=== PATIENT | male | born 1950 | race Native Hawaiian/Other Pacific Islander ===

== ENCOUNTER 2020-03-26 16:38 | Emergency (ER) | payer OTHER ==
[~2020-03-26] VITALS: Ht 175.3 cm; Wt 49.0 kg
[2020-03-26 16:38] VITALS: BP 163/87; TEMP 98.9
[2020-03-26 17:25] LABS: PLATELET COUNT 276 K/uL (142-355)
[2020-03-26] MEDS ORDERED: EUTHYROX100 MCG PO (19:25)
[2020-03-26] MEDS ORDERED: POTASSIUM CHLO20 ME1 PO (19:30)
[2020-03-26] MEDS ORDERED: MAGNSUS68 PO (19:32)
[2020-03-26] MEDS ORDERED: IBU800 MG PO (19:33)
[2020-03-26] MEDS ORDERED: PANTOPRAZOLE 40MG TA PO (19:35)
[2020-03-26] MEDS ORDERED: DIAZEPAM10 M2 PO (19:36)
[2020-03-26] MEDS ORDERED: ROBAXIN-750750 MG PO (19:38)
[2020-03-26] MEDS ORDERED: RAMI10CA PO (19:40)
[2020-03-26] MEDS ORDERED: ATEN50TA36 PO (19:41)
[2020-03-26] MEDS ORDERED: MONT10TA PO (19:42)
[2020-03-26] MEDS ORDERED: BUSPIRONE7.5 MG PO (19:44)
[2020-03-26] MEDS ORDERED: ALEN70TA19 PO (19:49)
[2020-03-26] MEDS ORDERED: CODEINE/APAP1 TA1 PO (19:54)
== END 2020-03-26 18:20 | disposition other institution (70) ==
LOC: ED 16:48
PROVIDERS: Family Medicine
DX: U07.1 COVID-19 (principal); R45.1 Restlessness and agitation; R46.89 Other symptoms and signs involving appearance and behavior; Z04.6 Encounter for general psychiatric examination, requested by authority
CPT/HCPCS: 80053; 81000; 85027; 87635; 93005; 99283; U0002